=== PATIENT | male | born 1955 ===

== ENCOUNTER 2016-06-24 05:23 | Day surgery (SDC) | payer OTHER ==
[~2016-06-24 05:23] MED LIST: CEFAZOLIN 2 GM/D5W RTU 2 GM/50 ML RTUPB IV ONE; LIDOCAINE 0.5% INJ-PF (5 MG/ML) 50 ML SDV SUBCUT PRN; RINGERS SOLUTION,LACTATED 1,000 ML IV PRN
[2016-06-24] MEDS ORDERED: ALBUTEROL SULFATE 0.083% NEB 2.5 MG/3 ML AMPUL NEB ONE (06:13)
[2016-06-24] MEDS ORDERED: FAMOTIDINE INJ/PF 20 MG/2 ML SDV IV ONE (07:09)
[2016-06-24] MEDS ORDERED: MIDAZOLAM 2 MG/2 ML INJ ONE (07:12)
[2016-06-24] MEDS ORDERED: BUPIVACAINE HCL 0.5 % INJ/PF 30 ML SDV ONE (07:12)
[2016-06-24] MEDS ORDERED: LIDOCAINE 1%/EPINEPHRINE INJ 20 ML VIAL ONE (07:12)
[2016-06-24] MEDS ORDERED: KETAMINE HCL INJ 500 MG/10 ML VIAL ONE (07:13)
[2016-06-24] MEDS ORDERED: DEXMEDETOMIDINE INJ 80 MCG/20 ML VIAL IV ONE (07:13)
[2016-06-24] MEDS ORDERED: PROPOFOL INJ 200 MG/20 ML VIAL IV ONE (07:13)
[2016-06-24] MEDS ORDERED: FENTANYL CITRATE INJ/PF 100 MCG/2 ML AMPUL ONE (07:14)
[2016-06-24] MEDS ORDERED: DIPHENHYDRAMINE HCL 50 MG/ML VIAL IV PRN (07:52)
[2016-06-24] MEDS ORDERED: MEPERIDINE HCL/PF INJ 25 MG/1 ML DISP.SYRIN IV PRN (07:52)
[2016-06-24] MEDS ORDERED: FENTANYL CITRATE INJ/PF 100 MCG/2 ML AMPUL IV PRN ×3 (07:52)
[2016-06-24] MEDS ORDERED: OXYCODONE-ACETAMINOPHEN 5-325 MG TABLET PO PRN ×2 (07:52)
[2016-06-24] MEDS ORDERED: MORPHINE SULFATE 10 MG/ML INJ IV PRN (07:52)
[2016-06-24] MEDS ORDERED: PROMETHAZINE HCL INJ 25 MG/1 ML VIAL IV PRN ×2 (07:52)
[2016-06-24] MEDS ORDERED: LIDOCAINE 1%/EPINEPHRINE INJ 20 ML VIAL INJ ONE (07:53)
[2016-06-24] MEDS ORDERED: BUPIVACAINE HCL 0.5 % INJ/PF 30 ML SDV INJ ONE (07:53)
--- NOTE | 2016-06-24 08:16 | Operative Report ---
Operative Report DATE OF SURGERY: 06/24/16 PREOPERATIVE DIAGNOSIS: Left medial meniscal tear POSTOPERATIVE DIAGNOSIS: Left medial meniscal tear. Grade 1 chondromalacia the medial compartment. Intact anterior cruciate ligament. Intact lateral meniscus. Grade 1 chondromalacia. The lateral compartment. 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 The left lower extremity is prepped and draped in sterile fashion. The knee is insufflated with accommodation Marcaine, Xylocaine, and epinephrine. Through medial and lateral patella portals. Subsequent medial lateral of toe portals are graded introduction. The arthroscope and debridements mentation. Joint is examined Mrs. Medick fashion findings as above. Using comminution basket Hernandez, mechanical shaver , DrFlorinda frequency of breath ablation probe a partial medial meniscectomy is performed from approximately 9:00 to 12:00 on the face of the Dial. The joints and examined Mrs. Medick fashion with no new findings. Instrumentation is removed. The portals closures interrupted nylon. A sterile compressive dressing was applied and the patient's returned to PACU in satisfactory condition.
[2016-06-24] MEDS ORDERED: OXYCODONE HCL IR 5 MG TABLET PO PRN (08:29)
[2016-06-24] MEDS ORDERED: ONDANSETRON 4 MG TAB.RAPDIS SL PRN (08:29)
[2016-06-24 09:55] VITALS: BP 110/60
[2016-06-24] MEDS ORDERED: ONDANSETRON HCL INJ/PF 4 MG/2 ML SDV ONE (10:20)
[2016-06-24] MEDS ORDERED: DEXAMETHASONE SOD PHOSPHATE INJ 4 MG/1 ML VIAL ONE (10:20)
[2016-06-24] MEDS ORDERED: KETOROLAC TROMETHAMINE 60 MG/2 ML SDV ONE (10:20)
[2016-06-24] MEDS ORDERED: LIDOCAINE 2% INJ-PF (20 MG/ML) 10 ML AMPUL ONE (10:20)
== END 2016-06-24 09:45 | disposition home or self-care (01) ==
LOC: OROUT 05:23
PROVIDERS: ATTEND Orthopaedic Surgery
PROC: 0SBD4ZZ Excision of Left Knee Joint, Percutaneous Endoscopic Approach (ICD-10-PCS; principal; 2016-06-24 07:30)
DX: M23.322 Other meniscus derangements, posterior horn of medial meniscus, left knee (principal); M22.42 Chondromalacia patellae, left knee; F17.210 Nicotine dependence, cigarettes, uncomplicated; E03.9 Hypothyroidism, unspecified; I25.10 Atherosclerotic heart disease of native coronary artery without angina pectoris; K21.9 Gastro-esophageal reflux disease without esophagitis; Z79.899 Other long term (current) drug therapy; Z79.82 Long term (current) use of aspirin; Z79.1 Long term (current) use of non-steroidal anti-inflammatories (NSAID); I25.2 Old myocardial infarction
CPT/HCPCS: 36415; 84132; 94640; 29881; J2250; J1100; J1885; J3010; J3490 ×4; J2405; J2704; S0028; J0690; 1400